=== PATIENT | female | born 1980 | race Caucasian/White ===

== ENCOUNTER 2025-03-19 17:27 | Emergency (ER) | payer MEDICAID ==
[~2025-03-19] VITALS: Ht 170.2 cm; Wt 77.5 kg
--- NOTE | 2025-03-19 17:44 | ELECTROCARDIOGRAPH REPORT ---
[facility] Test Date: 2025-03-19 Test Time: 17:42:57 Pat Name: BROOKLYN HORTON Department: [facility] Patient ID: [facility]-[id number] Room: Gender: F Ambulatory Care Coordinator: : 1980 Requested By: SUSANNE VARMA Order Number: [id number] Reading MD: Measurements Intervals [place] Rate: 94 P: 20 CT: 146 QRS: 84 QRSD: 112 T: 32 QT: 384 QTc: 481 Interpretive Statements Sinus rhythm Borderline intraventricular conduction delay Please click the below link to view image of tracing.
[2025-03-19 18:03] LABS: LEUKOCYTE ESTERASE ,URINE MODERATE (Neg); NITRITES, URINE POSITIVE (Neg); OCCULT BLOOD,URINE MODERATE (Neg)
[2025-03-19 18:06] LABS: UA COLLECTION TYPE CLN CATCH MIDSTREAM
[2025-03-19 18:08] LABS: URINE HCG NEGATIVE (NEG)
[2025-03-19 18:21] LABS: MEAN PLATELET VOLUME 7.9 FL (7.4-10.4); RED CELL DISTRIBUTION WIDTH 12.8 % (11.5-14.5)
[2025-03-19 18:28] LABS: SQUAMOUS EPITHELIAL CELL,UR FEW /LPF (FEW)
[2025-03-19 18:34] LABS: CREATININE 1.16 MG/DL (0.40-0.90); TOTAL CARBON DIOXIDE 28.7 MMOL/L (24-32); eCRCL 60 ML/MIN; eGFR 51 ML/MIN
[2025-03-19 18:42] LABS: PRO BRAIN NATRIURETIC PEPTIDE 61 PG/ML (0-125)
[2025-03-19] MEDS ORDERED: CefTRIAXone 1000mg IM Kit (w/lidocaine diluent) IM STA (19:58)
--- NOTE | 2025-03-19 20:03 | Physician Documentation ---
History of Present Illness ~ Chief Complaint: Flank Pain Stated Complaint: KIDNEY INFECTION Time Seen by MD: 18:39 HPI Patient is seen today with complaints of bilateral flank pain worse on the right side as well as urinary tract infection like symptoms including dysuria and urinary urgency and frequency. Patient states symptoms started a few days ago but felt he started resolving until her and her partner were intimate and had vaginal intercourse and she states that set off her symptoms again. She denies any fevers or chills and has no other concern or complaint at this time. Medication Reconciliation Allergies: Coded Allergies: No Known Allergies (Unverified , 03/19/25) Review of Systems Constitutional: Denies: chills, fever, weakness Eyes: Denies: pain, blurred vision ENT: Denies: ear pain, nose pain, throat pain, mouth pain Respiratory: Denies: cough, shortness of breath Cardiovascular: Denies: chest pain, palpitations Gastrointestinal: Denies: abdominal pain, nausea, vomiting Genitourinary: Denies: burning, dysuria Female Genitalia: Denies: vaginal discharge, pelvic pain Neurological: Denies: headache, dizziness Musculoskeletal: Denies: pain, swelling Integumentary: Denies: rash, lesions Allergic/Immunologic: Denies: hives, itching Hematologic/Lymphatic: Denies: no symptoms reported Psychiatric: Denies: depression, anxiety Physical Exam Vital Signs: Temperature: 99.0, Source: Temporal, Heart Rate: 86, Respiratory Rate: 18, BP: 189/98, Pulse Oximetry: 100, Weight: 77.500 Oxygen Flow Rate: 0 Physical Exam General: Awake and Alert, no acute distress. HEENT: Conjunctiva pink, Sclera clear, Mucus Membranes moist. Neck: Supple without masses and tenderness. Resp: Unlabored. Lungs clear to auscultation bilaterally. Heart: Regular Rate and rhythm, normal S1 and S2 without murmur, rub or gallop. Abdomen: Patient does have CVA tenderness mildly on the right side only, patien t does have mild tenderness to palpation in the suprapubic area only, abdomen is otherwise grossly nontender to palpation, no guarding, no rebound tenderness, normoactive bowel sounds, bowel is nondistended. Extremities: No cyanosis,clubbing or edema. Skin: Warm and Dry. Progress Results/Orders Results/Orders Vital Signs 03/19/25 17:30 Temp 99.0 Pulse 86 Resp 18 B/P (MAP) 189/98 Pulse Ox 100 O2 Flow Rate 0 Laboratory Tests Test 03/19/25 17:36 03/19/25 18:08 Urine Specimen Description Cln catch midstream Urine Color Yellow Urine Clarity Clear Urine pH 6.0 Urine Specific [place] <=1.005 Urine Protein Negative Urine Glucose (UA) Negative Urine Ketones Negative Urine Occult Blood Moderate H Urine Nitrite Positive H Urine Bilirubin Negative Urine Urobilinogen 0.2 Urine Leukocyte Esterase Moderate H Urine RBC 10-20 Urine WBC 30-50 H Urine Squamous Epithelial Cells Few Urine Bacteria 3+ Urine Culture Indicated Indicated Volume Urine Centrifuged 10 ml Urine HCG, Qualitative Negative Urine Comment White Blood Count 13.4 H Red Blood Count 4.95 Hemoglobin 14.5 Hematocrit 42.1 Mean Corpuscular Volume 85.0 Mean Corpuscular Hemoglobin 29.4 Mean Corpuscular Hemoglobin Concent 34.6 Red Cell Distribution Width 12.8 Platelet Count 223 Mean Platelet Volume 7.9 Neutrophils (%) (Auto) 85.6 H Lymphocytes (%) (Auto) 6.8 L Monocytes (%) (Auto) 7.0 Eosinophils (%) (Auto) 0.3 Basophils (%) (Auto) 0.3 Neutrophils # (Auto) 11.5 H Lymphocytes # (Auto) 0.9 L Monocytes # (Auto) 0.9 Eosinophils # (Auto) 0.0 Basophils # (Auto) 0.0 CBC Comment Sodium Level 139 Potassium Level 4.3 Chloride Level 103 Carbon Dioxide Level 28.7 Anion Gap 7 L Blood Urea Nitrogen 26 H Creatinine 1.16 H Estimated GFR/1.73 m2 51 BUN/Creatinine Ratio 22.4 H Glucose Level 116 H Calcium Level 8.5 Total Bilirubin 0.6 Aspartate Amino Transf (AST/SGOT) 17 Alanine Aminotransferase (ALT/SGPT) 21 Alkaline Phosphatase 91 Pro-B-Type Natriuretic Peptide 61 Total Protein 7.0 Albumin 3.7 Globulin 3.3 Albumin/Globulin Ratio 1.1 Lipase 82 H Chemistry Comments Microbiology Date/Time Source Procedure Growth Status 03/19/25 18:28 Urine Clean Catch Midstream Urine Culture - Preliminary Culture received. Resulted Medical Decision Making Findings Patient is seen today with complaints of bilateral flank pain worse on the right side as well as urinary tract infection like symptoms including dysuria and urinary urgency and frequency. Patient states symptoms started a few days ago but felt he started resolving until her and her partner were intimate and had vaginal intercourse and she states that set off her symptoms again. She denies any fevers or chills and has no other concern or complaint at this time. Patient did have urinalysis done which was highly indicative of urinary tract infection with positive nitrites and positive leukocyte esterase. Patient given dose of Rocephin IM in the ED tonight and prescription of Keflex 500 mg one tab 3 times a day for five days sent to patient's pharmacy. [facility] [address] in [place]. Patient will follow up with primary care in 2-5 days if no better as needed sooner. Return to ED with any worsening, concerning or changing symptoms. Departure Disposition: HOME / SELF CARE / HOMELESS Impression: Primary Impression: Acute urinary tract infection Additional Impression: Acute pyelonephritis Condition: Stable Discharge Instructions: Pyelonephritis, Adult Additional Instructions: Patient did have urinalysis done which was highly indicative of urinary tract infection with positive nitrites and positive leukocyte esterase. Patient given dose of Rocephin IM in the ED tonight and prescription of Keflex 500 mg one tab 3 times a day for five days sent to patient's pharmacy. [facility] [address] in [place]. Patient will follow up with primary care in 2-5 days if no better as needed sooner. Return to ED with any worsening, concerning or changing symptoms. Referrals: NO PRIMARY CARE PROVIDER (PCP) Prescriptions Cephalexin*Monohydrate* (Keflex*) 500 Mg Capsule 1 CAP PO Q8H for 7 Days, #21 CAP Prov: DOUG BROWN PAC 03/19/25 Signature Scribe Signature: No scribe Attestation: No scribe DOUG BROWN PAC Mar 19, 2025 20:03
[2025-03-19] MEDS ORDERED: CEPH-585 PO (20:06)
[2025-03-19 20:12] VITALS: BP 186/92; PULSE 88; RESP 18; TEMP 98.6; O2SAT 99
== END 2025-03-19 20:16 | disposition home or self-care (01) ==
LOC: ER 17:28
DX: N39.0 Urinary tract infection, site not specified (principal); N10 Acute pyelonephritis
CPT/HCPCS: 36415; 80053; 81001; 81025; 83690; 83880; 85025; 87077; 87088; 87186; 93005; 99284